=== PATIENT | male | born 2000 | race Caucasian/White ===

== ENCOUNTER 2021-03-14 10:05 | Emergency (ER) | payer MEDICAID ==
[~2021-03-14] VITALS: Ht 182.9 cm; Wt 97.3 kg
[2021-03-14 10:16] VITALS: BP 117/75; TEMP 100.1
[2021-03-14] MEDS ORDERED: ZITHROMAX Z PA250 MG PO (11:45)
[2021-03-14 12:10] VITALS: PULSE 107
[2021-03-14] MEDS ORDERED: MOBIC 7.5MG7.5 MG PO (14:38)
[2021-03-14] MEDS ORDERED: NAPROSYN500 MG PO (14:39)
== END 2021-03-14 12:10 | disposition home or self-care (01) ==
LOC: COL.ER 10:05
DX: J18.1 Lobar pneumonia, unspecified organism (principal); Z20.822 Contact with and (suspected) exposure to COVID-19